=== PATIENT | male | born 1965 | race Caucasian/White ===

== ENCOUNTER 2024-07-05 07:47 | Outpatient (RCR) | payer BC, SELFPAY ==
--- NOTE | 2024-07-05 08:49 | HP.PTEVAL_ITS ---
Patient's Visit Information Visit Information Visit Information: HILARIA BECERRA is a 59 year old M referred to Physical Therapy by Dr. Chris Angulo MD with a diagnosis of Lumbar stenosis and scoliosis. Date of Evaluation: 07/05/24 Physical Therapist: Fletcher Carbajal, DPT, OCS, CSCS Visit Plan Frequency: 1-2x /Week Duration: 4-6 Weeks Plan: 1-2x/week as needed for 4 weeks to instruct and progress exercises to increase flex in HS/quads, move lumbar spine for nourishment, strengthen core for stabilization and general ex as tolerated. Pt is frustrated with pain and does nto indicate seeing the benefit of therapy but willing to commit at least until get approval for surgery. IE HEP Pelvic tilt alot thorugh day to keep spine moving. educated on benefits of wh walker to help get around. next session, HS and quad stretches, mat based back rom and core strength to HEP, pt wants once per week and will do at h ome TENS as needed. Subjective Subjective: LBP for a year or more. Had steroid injections and no help. pain is in back and down R leg. Walking is worse and needs to use a cane, has walker at home. Keeps him up at night. 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 Pain the whole next day when he is too active. No numbness or tingling in legs. This may have started with mowing a couple hours. Will have lumbar fusion after cleared by heart doctor. Pain LBP. R leg': Pain Intensity (Out of 10): 5 Pain Intensity Range: 3 and 10 Comment: lying down is best on right side. walking is worst Objective Objective: Walks with cane in R UE mod I, hunched oveer, slow and small steps. Posture in sitting is leaning L constantly and hunched FW. Is able to stand up tall when cued but gives larger pressure feeling in R LB that is uncomfortable. Lumbar AROM ext max limited to just about neutral and painful, flexion is min limited in lumbar and leans L. SB R is callenging and L is min deficits. Pt affect is frustrated and painful and many sighs throughout session, obviously wanting a surgical end to this problem understandably. HS and quad are max tight at - 35 90/90 and + SLR adn slump on R. reflexes 2/3 patella adn achilles B. sensation B LE to gross light touch is WNL and without deficit. LE strength shows no myotomal problems but apparently weak in hip stabs B with hip flexion testing and core necessitating arm on table fro stability. hip abd and ext 3+, flexion 3+, knee flexion and ext 4-, ankles 4/5. Walks slightly faster and up talleer with wh walker and eeducated him on the ginna efits of this today. Pelvic mobility is actually decent and without complaint today in supinee and min deficits in sitting. Balance/Special Test Scores Oswestry Low Back Score: 25 Goals Goal 1:: Patient I in appropriate HEP to minimize symptoms and maximize function in prep for possible surgery Goal Time Frame: 4-6 Weeks Goal 2:: Patient able to walk into PT without increasing pain in LB Goal Time Frame: 4-6 Weeks Goal 3:: Oswestry back 12 or better Goal Time Frame: 4-6 Weeks Rehabilitation Potential Physical Therapy Diagnosis: limited strength and ROM in core and pain limiting function and ability to walk. Rehabilitation Potential: Questionable Anticipated Interventions Patient/Client Instruction: Educate patient on: Condition For the Purpose of:: To decrease pain, To increase ROM, To improve muscle performance and motor function, To increase tolerance to activity/condition/position, To improve ability of physical actions for home/community/work/leisure and To improve gait and locomotor functions Therapeutic Exercise to Include: Strength training, Postural training, Flexibilty training, Gait and locomotor training, Passive ROM and Active ROM For the Purpose of:: To decrease pain, To increase ROM, To improve nutrient delivery to tissue, To improve muscle performance and motor function and To increase tolerance to activity/condition/position Manual Therapy Techniques to Include: Mobilization and Passive ROM For the Purpose of:: To increase ROM and To improve nutrient delivery to tissue TENS: Yes Thermo therapy (hot pack): Yes For the Purpose of:: To decrease pain Text: Thank you for the opportunity to evaluate your patient. For Medicare and Medicare HMO plans, please review the plan of care and approve it. It will need to be FAXED BACK to us at [phone] for Medicare purposes. For Medicare only, by signing this I certify the plan of care. Please let me know if there are questions or concerns regarding this plan of care. Physician Signature: Date:
--- NOTE | 2024-07-26 14:12 | HP.PT.NRP ---
Patient Information Patient Information: HILARIA BECERRA was seen in my office for initial evaluation on 07/05/24. The following Plan of Care was established for this patient: POC Established Initial Frequency: 1-2x /Week Initial Duration: 4-6 Weeks Anticipated Interventions Patient/Client Instruction: Educate patient on: Condition For the Purpose of:: To decrease pain, To increase ROM, To improve muscle performance and motor function, To increase tolerance to activity/condition/position, To improve ability of physical actions for home/community/work/leisure and To improve gait and locomotor functions Therapeutic Exercise to Include: Strength training, Postural training, Flexibilty training, Gait and locomotor training, Passive ROM and Active ROM For the Purpose of:: To decrease pain, To increase ROM, To improve nutrient delivery to tissue, To improve muscle performance and motor function and To increase tolerance to activity/condition/position Manual Therapy Techniques to Include: Mobilization and Passive ROM For the Purpose of:: To increase ROM and To improve nutrient delivery to tissue TENS: Yes Thermo therapy (hot pack): Yes For the Purpose of:: To decrease pain Last Seen Last Seen: This patient was last seen in our office 07/05/24. Pertinent comments regarding their Physical therapy will appear below: Pt seen for IE and POC established. Pt has called to cancel appointments stating he was cleared for surgery and will save PT for later as needed. At this point I will be discontinuing this patient from physical therapy. I would be happy to see this patient again in the future if found appropriate by the physician. Thank you! Fletcher Carbajal, DPT, OCS, CSCS Balance/Gait/Functional tests Balance/Special Test Scores Oswestry Low Back Score: 25
== END 2024-07-05 19:00 | disposition home or self-care (01) ==
LOC: PT 07:47
PROVIDERS: PCP Preventive Medicine Occupational Medicine; Referring Provider Orthopaedic Surgery Orthopaedic Surgery of the Spine; Visit Provider Orthopaedic Surgery Orthopaedic Surgery of the Spine
DX: M41.9 Scoliosis, unspecified (principal); M48.061 Spinal stenosis, lumbar region without neurogenic claudication
CPT/HCPCS: 97161

== ENCOUNTER 2024-08-25 16:48 | Inpatient (IN) | payer BC, SELFPAY ==
[2024-08-12 09:38] LABS: Absolute Lymphocyte Count 1.76 X10^3/uL (0.83-4.51); Absolute Neutrophil Count 4.8 X10^3/uL (2.0-7.7); Basophil# 0.09 X10^3/uL; Basophil% 1.2 % (0-1); Eosinophil# 0.18 X10^3/uL; Eosinophils% 2.4 % (0-5); Hemoglobin 14.1 g/dL (13.0-16.5); Lymphocyte # 1.76 X10^3/ul (0.83-4.51); Lymphocyte % 23.4 % (19-41); Mean Corp Hgb Conc 34.4 g/dL (32-36); Mean Corpuscular Hgb 32.4 pg (27.0-32.0); Mean Corpuscular Volume 94.3 fL (80-94); Mean Platelet Vol. 11.7 fl (6.2-12.0); Monocyte# 0.71 X10^3/uL; Monocyte% 9.4 % (0-10); NRBC Flagged by Analyzer 0 % (0-5); Neutrophil # 4.76 X10^3/uL (2.7-7.7); Neutrophil % 63.2 % (47-70); Platelet Count 172 K/mm3 (150-450); RBC Distribution Width CV 12.2 % (11.6-14.6); Red Blood Count 4.35 M/mm3 (4.6-6.2); White Blood Count 7.5 K/mm3 (4.4-11.0)
[2024-08-12 10:47] LABS: Anion Gap 17 (5-15); BUN 19 mg/dL (4-19); BUN/Creat Ratio 17.5 RATIO (10-20); Calcium,Total 9.7 mg/dL (7.6-11.0); Carbon Dioxide 21.1 mmol/L (21.0-32.0); Chloride 102 mmol/L (98-108); EST Glomerular Filtration Rate 76 (>60); Glucose 141 mg/dL (70-99); HIV Nonreactive (Nonreactive); Magnesium 2.4 mg/dL (1.5-2.2); Potassium 3.8 mmol/L (3.3-5.1); Sodium Level 140 mmol/L (133-145)
[2024-08-12 11:02] LABS: Hepatitis B Surface Antibody Nonreactive; Hepatitis C Antibody Nonreactive (Nonreactive)
--- NOTE | 2024-08-12 19:54 | PAT.ANESEVAL ---
Pre-Assessment Diagnosis/Proposed Procedure Planned Operative Procedure(s): (N/A) Anterior lumbar interbody fusion L5-S1, oblique lateral interbody fusion L1-2 and L2-3 and posterior fusion L5-S1, L1-2 and L2-3 Anesthesia History Anesthesia History - guidance director: Anesthesia History - guidance director Hx Hospitalization No 08/11/24 09:24 Any Problems With Anesthesia No 08/11/24 09:24 Cholinesterase deficiency No 08/11/24 09:24 You/Your Family Experience No 08/11/24 09:24 fever (hyperthermia) with Relationship Recent Exposure to Contagious Disease Does patient have nerve No 08/11/24 09:24 stimulator Patient instructed to have device shut off --Does patient have Pacemaker or ICD? When Was Last Pacemaker Check QUESTION #4 FULL TEXT: You/Your Family Experience fever (hyperthermia) with Anesthesia Last Oral Intake Last Oral intake: Last Oral Intake NPO since Meds taken in AM with sips of water? Meds patient instructed to take am of surgery PONV PONV - guidance director: PONV - guidance director Female No 08/11/24 09:24 HX of Motion Sickness No 08/11/24 09:24 HX of N/V After Surgery No 08/11/24 09:24 Non-Smoker No 08/11/24 09:24 Duration of Surgery greater Yes 08/11/24 09:24 than 60 minutes Number of Risk Factors 1 08/11/24 09:24 PONV Score Low Risk 08/11/24 09:24 Height & Weight Height & Weight: Anesthesia: Height & Weight Height 5 ft 9 in 06/25/24 08:41 Respiratory Assessment Respiratory Assessment - guidance director: Respiratory Tract Infection Hx - guidance director Hx Respiratory Tract Infection No 08/11/24 09:24 STOP Sleep Apnea STOP Sleep Apnea - guidance director: STOP Sleep Apnea - guidance director Hx Hypertension Yes: CONTROLLED WITH MED 08/11/24 09:24 Hx Sleep Apnea No 08/11/24 09:24 CPAP BIPAP Do you snore loudly (louder No 08/11/24 09:24 than talking or can be heard Do you often feel tired/ No 08/11/24 09:24 fatigued/ sleepy during daytime? Has anyone observed you stop No 08/11/24 09:24 breathing during sleep? STOP Results Negative 08/11/24 09:24 QUESTION #5 FULL TEXT : Do you snore loudly (louder than talking or can be heard through closed doors)? 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 Specify any problems Hx of Preganancy in last 3 N/A 08/11/24 09:24 Months Nurse Filling Out Transfusion NBUCHER 08/11/24 09:24 & Questions: Date: 08/11/24 08/11/24 09:24 Time: 09:08/11/24 09:24 Patient unable to answer at this time (ie. confused, unrespo /Reproduction History /Reproductive History - guidance director: /Reproductive Hx- guidance director Hx Now No 08/11/24 09:24 Gestational Age (in weeks): EDC: Hx Hx Para Hx Section SAB No 08/11/24 09:24 [facility] Medical History (Updated 08/11/24 @ 09:32 by Cely Cooper) Loss of hearing Ambulates with cane High cholesterol Heartburn Gastric reflux Smoker History of edema History of stress test History of echocardiogram Cardiology follow-up encounter Chest pain Cervical vertebral fusion (~2019) Heart attack Hypertension Hyperlipemia Home Medications ?Medication ?Instructions ?Recorded ?Last Taken ?Type aspirin 81 mg tablet,delayed 81 mg PO QDAY HEART HEALTH 06/25/24 Unknown History release atorvastatin 40 mg tablet 40 mg PO QDAY HLD 06/25/24 Unknown History carvedilol 6.25 mg tablet 6.25 mg PO BID HTN 06/25/24 Unknown History clopidogrel 75 mg tablet 75 mg PO DAILY BLOOD THINNER 06/25/24 Unknown History furosemide 20 mg tablet 20 mg PO DAILY EDEMA 06/25/24 Unknown History losartan 100 mg tablet 100 mg PO DAILY HTN 06/25/24 Unknown History potassium chloride 10 mEq 10 meq PO BID HYPOKALEMIA 06/25/24 Unknown History tablet,extended release ergocalciferol (vitamin D2) 1,250 1,250 mcg PO QWEEK SUPPLEMENT 08/11/24 Unknown History mcg (50,000 unit) capsule Allergy/AdvReac Type Severity Reaction Status Date / Time No Known Allergies Allergy Verified 08/11/24 09:19 Surgical History (Updated 08/11/24 @ 09:32 by Cely Cooper) S/P CABG x 4 History of cardiac catheterization History of heart surgery History of wisdom tooth extraction History of open heart surgery (~2014) Social History Smoking Status: Current every day smoker tobacco type: cigarettes Audit: Pertinent Findings Pertinent Findings EKG Perinent findings: August 12, 2024. Normal sinus rhythm. T wave abnormality consider inferior ischemia. T wave abnormality consider anterior lateral ischemia. Compared to EKG of June 30, 2024 the inverted T waves in V4-6 has now extended into V2 and V3. T wave abnormality in the inferior leads is unchanged. Stress test pertinent findings: July 16, 2024. No ischemia. Echo (EF%) pertinent findings: July 16, 2024. Ejection fraction is 25 to 30%. There is dyskinesia of several areas. No aortic stenosis is noted. Mitral valve angioplasty ring is present and has a mild 1+ regurgitation. Right ventricular systolic pressure is 19 mmHg. Consult pertinent findings: July 20, 2024. [employer]. 1. Coronary artery disease?stable-no ischemia on stress test. Tolerating medication we will continue. 2. Cardiomyopathy?ejection fraction of 25% in 2018. Patient declined an AICD at that time. Repeat echo still shows EF of 25%. Change losartan to Entresto. 3. Status post mitral valve repair. 1+ MR on echo. 4. Hypertension-controlled. Continue carvedilol and losartan. 5. Preop cardiovascular exam. Patient will be undergoing a lumbar surgery. No ischemia seen on stress test. He is at least moderate risk due to his low ejection fraction. Continue beta-nasra morning of surgery. May hold Plavix for 5 days. Recommendation Anesthesia Recommendation Anesthesia recommendation: OPTIMIZED for anesthesia
[2024-08-13 05:07] LABS: Hepatitis A AB, Total Negative (Negative)
[2024-08-25] VITALS (15 sets, daily range): BP systolic 96–151; BP diastolic 68–104; PULSE 69–107; RESP 14–20; TEMP 36.2–37.3; O2SAT 92–98; BMI 30.8
[2024-08-25] MEDS: Lactated Ringers 1,000 ML 15 ML IV (06:06)
[2024-08-25] MEDS: Magnesium 1 GM over 15 mins IV (06:07)
[2024-08-25] MEDS: Insulin Lispro 100 UNIT/ML INSULN.PEN SC ×3 (06:21→22:55)
[2024-08-25] MEDS: Acetaminophen 500 MG Tablet 1000 MG PO ×2 (06:26→20:35)
--- NOTE | 2024-08-25 06:32 | PRE.ANES_ITS ---
ASA Classification* ASA Classification ASA Classification: 4 (LOW EF of 25-30%. We will place an arterial line in pre- op, or pre-induction. Induction with etomidate instead of propofol, and slow induction please given the low EF. ) Assessment & Plan Anesthesia* Anesthesia Assessment Anesthesia Assessment: Discussed sedation and/or anesthesia options, risks, benefits, and alternatives with patient/parents/legal guardian/POA. Questions invited. The patient/parents/legal guardian/POA seems to understand and agrees to proceed with anesthesia plan. Reviewed the physical assessment, medical history, allergy history and patient home medications list prior to surgery/procedure/anesthetic and documented any changes. Performed airway and anesthesia risk assessments. Given the low EF and the length of the procedure, I had a very detailed and thorough conversation with the patient today regrading the risk of today's procedure. I explained to him that due to his low EF, there is an increased chance of periprocedural cardiac complications which could result in lethal arrhythmias, worsening heart failure, stroke, myocardial infarction, or . As he will experience bleeding during the procedure, this can worsen the oxygen demand on his heart. I explained to him that if there were to be an emergency, our potential interventions include CPR, delivering electric shocks to his heart, and having to remain on a ventilator. He acknowledges this and I answered all of his questions. He would like to proceed with the procedure. He is okay to receive blood products if neeed. Anesthesia Type Anesthesia Type: General History Source History Obtained from:: Patient and Chart Anesthesia Focused Assessment* Temperature: 98.2 F Pulse Rate: 69 Blood Pressure: 129/91 Respiratory Rate: 18 Pulse Ox: 98 Oxygen Delivery Method: Room Air Airway Assessment Mouth opens: >3 cm Mallampati Score: II Teeth Condition: Intact and Missing (1 back) Neck Range of motion (ROM): Full ROM Focused Labs Anesthesia Preop lab: CBC WBC 7.5 K/mm3 (4.4-11.0) 08/12/24 08:42 08/12/24 RBC 4.35 M/mm3 (4.6-6.2) L 08/12/24 08:42 08/12/24 Hgb 14.1 g/dL (13.0-16.5) 08/12/24 08:42 08/12/24 Hct 41.0 % (40-54) 08/12/24 08:42 08/12/24 Plt Count 172 K/mm3 (150-450) 08/12/24 08:42 08/12/24 CHEMISTRY Potassium 3.8 mmol/L (3.3-5.1) 08/12/24 08:42 08/12/24 Sodium 140 mmol/L (133-145) 08/12/24 08:42 08/12/24 Magnesium 2.4 mg/dL (1.5-2.2) H 08/12/24 08:42 08/12/24 BUN 19 mg/dL (4-19) 08/12/24 08:42 08/12/24 Creatinine 1.10 mg/dL (0.70-1.20) 08/12/24 08:42 08/12/24 Glucose 141 mg/dL (70-99) H 08/12/24 08:42 08/12/24 COAG Pre-Assessment Diagnosis/Proposed Procedure Planned Operative Procedure(s): (N/A) Anterior lumbar interbody fusion L5-S1, oblique lateral interbody fusion L1-2 and L2-3 and posterior fusion L5-S1, L1-2 and L2-3 Anesthesia History Anesthesia History - staff technologist: Anesthesia History - staff technologist Hx Hospitalization No 08/11/24 09:24 Any Problems With Anesthesia No 08/11/24 09:24 Cholinesterase deficiency No 08/11/24 09:24 You/Your Family Experience No 08/11/24 09:24 fever (hyperthermia) with Relationship Recent Exposure to Contagious No 08/25/24 06:16 Disease Does patient have nerve No 08/11/24 09:24 stimulator Patient instructed to have device shut off --Does patient have Pacemaker No 08/25/24 06:16 or ICD? When Was Last Pacemaker Check QUESTION #4 FULL TEXT: You/Your Family Experience fever (hyperthermia) with Anesthesia Last Oral Intake Last Oral intake: Last Oral Intake NPO since 04:30 08/25/24 06:16 Meds taken in AM with sips of Yes 08/25/24 06:16 water? Meds patient instructed to take am of surgery PONV PONV - staff technologist: PONV - staff technologist Female No 08/11/24 09:24 HX of Motion Sickness No 08/11/24 09:24 HX of N/V After Surgery No 08/11/24 09:24 Non-Smoker No 08/11/24 09:24 Duration of Surgery greater Yes 08/11/24 09:24 than 60 minutes Number of Risk Factors 1 08/11/24 09:24 PONV Score Low Risk 08/11/24 09:24 Height & Weight Height & Weight: Anesthesia: Height & Weight Height 5 ft 9 in 08/25/24 06:16 Weight: 94.8 kg 08/25/24 06:16 Body Mass Index (BMI) 30.8 08/25/24 06:16 Respiratory Assessment Respiratory Assessment - staff technologist: Respiratory Tract Infection Hx - staff technologist Hx Respiratory Tract Infection No 08/11/24 09:24 STOP Sleep Apnea STOP Sleep Apnea - staff technologist: STOP Sleep Apnea - staff technologist Hx Hypertension Yes: CONTROLLED WITH MED 08/11/24 09:24 Hx Sleep Apnea No 08/11/24 09:24 CPAP BIPAP Do you snore loudly (louder No 08/11/24 09:24 than talking or can be heard Do you often feel tired/ No 08/11/24 09:24 fatigued/ sleepy during daytime? Has anyone observed you stop No 08/11/24 09:24 breathing during sleep? STOP Results Negative 08/11/24 09:24 QUESTION #5 FULL TEXT : Do you snore loudly (louder than talking or can be heard through closed doors)? 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 Specify any problems Hx of Preganancy in last 3 N/A 08/11/24 09:24 Months Nurse Filling Out Transfusion NBUCHER 08/11/24 09:24 & Questions: Date: 08/11/24 08/11/24 09:24 Time: 09:08/11/24 09:24 Patient unable to answer at this time (ie. confused, unrespo /Reproduction History /Reproductive History - staff technologist: /Reproductive Hx- staff technologist Hx Now No 08/11/24 09:24 Gestational Age (in weeks): EDC: Hx Hx Para Hx Section SAB No 08/11/24 09:24 Active Medications Active Medications: Current Medications Generic Name Dose Route Start Last Admin Trade Name Freq PRN Reason Stop Dose Admin Acetaminophen 1,000 mg 08/25/24 07:30 08/25/24 06:26 Acetaminophen 500 Mg Tablet PO 08/25/24 07:31 1,000 mg PREOP ONE Administration Cefazolin Sodium 2 gm/ Sodium 110 mls @ 150 mls/hr 08/25/24 07:30 Chloride IV 08/25/24 08:13 INTRAOP ONE Tranexamic Acid 1,000 mg/ 110 mls @ 440 mls/hr 08/25/24 07:30 Sodium Chloride IV 08/25/24 07:44 X1 ONE Tranexamic Acid 1,000 mg/ 110 mls @ 440 mls/hr 08/25/24 07:30 Sodium Chloride IV 08/25/24 07:44 X1 ONE Magnesium Sulfate 1 gm/ 102 mls @ 408 mls/hr 08/25/24 07:30 08/25/24 06:07 Dextrose IV 08/25/24 07:44 408 mls/hr INTRAOP ONE Administration Lactated Ringer's 1,000 mls @ 15 mls/hr 08/25/24 05:45 08/25/24 06:06 IV 15 mls/hr .Q48H MONIQUE Administration Insulin Human Lispro 1 - 6 unit 08/25/24 07:30 08/25/24 06:21 Insulin Lispro 100 Unit/Ml Insuln.Pen SC 08/25/24 18:00 2 u Q4H PRN PRN Administration BG>/= 180, SEE PROTOCOL Protocol PFSH Medical History Loss of hearing Ambulates with cane High cholesterol Heartburn Gastric reflux Smoker History of edema History of stress test History of echocardiogram Cardiology follow-up encounter Chest pain Cervical vertebral fusion (~2019) Heart attack Hypertension Hyperlipemia Home Medications ?Medication ?Instructions ?Recorded ?Last Taken ?Type aspirin 81 mg tablet,delayed 81 mg PO QDAY HEART HEALT H 06/25/24 08/19/24 History release atorvastatin 40 mg tablet 40 mg PO QDAY HLD 06/25/24 0 08/24/24 History carvedilol 6.25 mg tablet 6.25 mg PO BID HTN 06/25/24 08/25/24 History clopidogrel 75 mg tablet 75 mg PO DAILY BLOOD THINNER 06/25/24 08/19/24 History furosemide 20 mg tablet 20 mg PO DAILY EDEMA 5 08/24/24 History losartan 100 mg tablet 100 mg PO DAILY HTN 06/25/24 Unknown History potassium chloride 10 mEq 10 meq PO BID HYPOKALEMIA 08/24/24 History tablet,extended release ergocalciferol (vitamin D2) 1,250 1,250 mcg PO QWEEK S UPPLEMENT 08/11/24 08/18/24 History mcg (50,000 unit) capsule Allergy/AdvReac Type Severity Reaction Status Date / Time No Known Allergies Allergy Verified 08/25/24 06:04 Surgical History S/P CABG x 4 History of cardiac catheterization History of heart surgery History of wisdom tooth extraction History of open heart surgery (~2014) Social History Smoking Status: Current every day smoker tobacco type: cigarettes Review of Systems (Anesthesia) ROS Narrative System reviewed and no additional complaints, except as documented. Physical Exam Const alert, oriented x3 and average body habitus Resp normal respiratory effort, normal air movement and clear to auscultation bilaterally Cardio regular rate, regular rhythm, no murmurs and diaphoretic
--- NOTE | 2024-08-25 07:12 | PCM.HP.BLA ---
History and Physical Date of Admission: 08/25/24 MR#: [id number] Acct: [id number] Name: HILARIA BECERRA Rep #: [id number] : 1965 Provider: Dr. Chris Angulo MD Age/Sex: 59/M Location[place] [facility] [email or web address] Status: Signed Intake Vital Signs 06/26/2507:41 Height 5 ft 9 in Intake Visit Reasons: lumbar spine Chief Complaint: Lumbar spine Allergies No Known Allergies Allergy (Verified 08/19/24 09:56) Medications ?Medication ?Instructions ?Recorded ?Confirmed ?Type aspirin 81 mg tablet,delayed 81 mg PO QDAY HEART HEALTH 06/25/24 08/19/24 History release atorvastatin 40 mg tablet 40 mg PO QDAY HLD 06/25/24 08/19/24 History carvedilol 6.25 mg tablet 6.25 mg PO BID HTN 06/25/24 08/19/24 History clopidogrel 75 mg tablet 75 mg PO DAILY BLOOD THINNER 06/25/24 08/19/24 History furosemide 20 mg tablet 20 mg PO DAILY EDEMA 06/25/24 08/19/24 History losartan 100 mg tablet 100 mg PO DAILY HTN 06/25/24 08/19/24 History potassium chloride 10 mEq 10 meq PO BID HYPOKALEMIA 06/25/24 08/19/24 History tablet,extended release ergocalciferol (vitamin D2) 1,250 1,250 mcg PO QWEEK SUPPLEMENT 08/11/24 08/19/24 History mcg (50,000 unit) capsule PFSH Medical History Loss of hearing Ambulates with cane High cholesterol Heartburn Gastric reflux Smoker History of edema History of stress test History of echocardiogram Cardiology follow-up encounter Chest pain Cervical vertebral fusion (~2019) Heart attack Hypertension Hyperlipemia Surgical History S/P CABG x 4 History of cardiac catheterization History of heart surgery History of wisdom tooth extraction History of open heart surgery (~2014) Social History Smoking Status: Current every day smoker tobacco type: cigarettes HPI lumbar spine Details: This documentation accurately reflects the service provided and the decisions made by me, Dr. Chris Angulo MD 08/19/24 0949. Part of today?s visit was documented by Bobbi DUARTE, acting as scribe. HILARIA BECERRA is a 59 year old M here today for preop, lumbar spine, dos 08/25/24. He continues to have significant low back pain, forward stooping posture, difficulty walking distances and walks with a cane. 06/25/24: HILARIA BECERRA is a 59 year old M here today for initial evaluation of lumbar spine pain. He presents ambulating with a cane. He reports a one year history of lumbar spine pain, insidious onset. He states the low back pain is worse on the right side. He states walking is difficult due to the pain and has been using a cane for the last three months due to this, The pain does make it difficulty for him to do his daily activities, lift and bend. He states laying down in the only thing that gives him relief. The pain does radiate down into his right anterior thigh. He denies previous surgery or injury to his low back. He denies numbness and tingling. He has not seen pain management. He has not done PT. He does have a previous history of a cervical fusion. He does have a history of heart attack with coronary bypass surgery for which he takes Plavix for. He denies diabetes. He denies strokes. He states he is only able to walk short distances and has to stop frequently and take breaks. He is not able to stand for long periods of time. He has to lean on a cart when shopping to get around a store. He does not feel weakness in his legs with walking. He has taken oral steroids several times over the last year which was minimally helpful. His knees do not give out or buckle when he walks. He denies numbness in his hands. He currently does not take anything for pain relief. 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 Ortho Exam General General: Yes no acute distress Neurologic: Yes alert and Yes oriented x3 Spine SPINE TESTING CERVICAL THORACIC LUMBAR Musculoskeletal Strength 0=absent - 5=normal Details: Exam of the back shows midline paraspinal tenderness in the mid lumbar region. Neurologic valuation of lower extremity shows 5 x 5 power in all muscles normal sensations in all dermatomes. Patient stands with a forward stooping posture. There is no hyperreflexia lower extremities. Coding Level of Care Code Off vis,est,level 4 Diagnoses Spondylolisthesis, lumbar region M43.16 Other secondary scoliosis, lumbar region M41.56 Scoliosis type: other secondary scoliosis Spinal stenosis of lumbar region with neurogenic claudication M48.062 Other intervertebral disc degeneration, lumbar region with discogenic back pain and lower extremity pain M51.362 Time Spent (min) 35 Assessment and Plan Assessment and Plan (1) Spondylolisthesis, lumbar region: Status: Acute (2) Lumbar scoliosis: Status: Acute Qualifiers: Scoliosis type: other secondary scoliosis Qualified Code(s): M41.56 - Other secondary scoliosis, lumbar region (3) Spinal stenosis of lumbar region with neurogenic claudication: Status: Acute (4) Other intervertebral disc degeneration, lumbar region with discogenic back pain and lower extremity pain: Status: Acute Plan Obtained Xrays and MRI of patient's lumbar spine. X-rays show L1-3 severe disc degeneration with disc height loss with degenerative scoliosis and severe central and foraminal stenosis. L5-S1 shows grade 1 spondylolisthesis with mild dynamic instability. Significant foraminal stenosis noticed at L5-S1. Patient has skip levels where L5 and S1 has pathology followed by L1-3. Explained x-ray results in detail with patient. Reviewed outside MRI with patient in detail. Pt does have a posture where he leans forward. He has developed neurogenic claudication and cannot walk distances anymore. He has severe limitation of activities of daily living because of this. He is unable to stand for long period of time as well. Discussed surgical and non surgical options with patient. Discussed risks, alternative and benefits to each. Pt has not tried PT or pain management. Recommend pt try the non surgical options before considering surgery starting with PT. Pt would like to proceed with surgery and will do physical therapy as prerehabilitation prior to surgery. Pt would require surgery on two portions of the spine. Discussed that this would be a long surgery for the patient. Pt will require clearance from cardiology and primary care before surgery. 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 Advised pt he will spend 1-2 nights in the hospital and will require a walker after the surgery. He does not wish to pursue a pain management referral. All questions answered. Patient in agreement of plan. Recommend patient follow up 1 week before surgery or as needed. Surgery will be L5-S1 and L1-L3 anterior posterior fusion with indirect decompression. All risk benefits and alternatives were discussed in detail. Risks include but are not limited to infection, bleeding, need for blood transfusion, injury to nerves and vessels, visceral injury, ileus, vascular injury, DVT, pulm embolism, pneumonia, atelectasis, cardiopulmonary event, pseudoarthrosis, hardware failure, adjacent segment degeneration, need for further surgery, persistent pain, nerve root injury, foot drop, persistent numbness and weakness, difficulty to walk. Patient understands and agrees to proceed with surgery. Consent was signed.
[2024-08-25 07:40] LABS: Bedside Glucose 247 mg/dL (74-106)
[2024-08-25] MEDS: Cefazolin 2 GM in 0.9% Normal Saline (100mL Bag) 100 ML IV ×2 (07:46→22:55)
--- NOTE | 2024-08-25 07:46 | RAD_ITS ---
PROCEDURE: L/S SPINE MIN 4 VIEWS 08/25/2024 REASON FOR EXAM: ANTERIOR LUMBAR FUSION L5-S1, OBLIQUE FUSION L1-2 AND L2-3 TECHNIQUE: Fluoroscopy with 27 spot images FINDINGS: Fluoroscopy time 250.2 seconds Cumulative dose 142.05 mGy Placement of anterior intervertebral cage and anterior fusion L5-S1. L1-2 and L2-3 intervertebral disc spacers with posterior fusion and lateral screws. Posterior fusion L5-S1. Please see operative report for further detail. RAD/L/S Spine Min 4 Views IMPRESSION: Fluoroscopy as detailed above Reading Location: [id number]
[2024-08-25] MEDS: TRANEXAMIC ACID 1,000 MG in 0.9% Normal Saline (100mL Bag) 100 ML 440 MG IV ×2 (07:51→15:50)
[2024-08-25 09:20] LABS: Base Excess 0 mmol/L (-2 to +2); Bicarbonate 25.7 mmol/L (22-26); Blood Gas Specimen Type ART; Mode SIMV; O2 Delivery Device Adult Vent; PEEP 5; PO2 185 mmHG (75-100); RR 10; SITE Art Line; SO2 100 % (95-99); Total Carbon Dioxide 27 mmol/L; pCO2 44.5 mmHg (35-45); pH 7.37 (7.35-7.45)
[2024-08-25 09:22] LABS: Absolute Lymphocyte Count 1.56 X10^3/uL (0.83-4.51); Absolute Neutrophil Count 4.9 X10^3/uL (2.0-7.7); Basophil# 0.09 X10^3/uL; Basophil% 1.2 % (0-1); Eosinophil# 0.24 X10^3/uL; Eosinophils% 3.1 % (0-5); Hematocrit 37.9 % (40-54); Hemoglobin 13.3 g/dL (13.0-16.5); Lymphocyte # 1.56 X10^3/ul (0.83-4.51); Mean Corp Hgb Conc 35.1 g/dL (32-36); Mean Corpuscular Hgb 32.8 pg (27.0-32.0); Mean Corpuscular Volume 93.3 fL (80-94); Mean Platelet Vol. 10.7 fl (6.2-12.0); Monocyte% 12.8 % (0-10); NRBC Flagged by Analyzer 0 % (0-5); Neutrophil # 4.88 X10^3/uL (2.7-7.7); Neutrophil % 62.4 % (47-70); Platelet Count 146 K/mm3 (150-450); RBC Distribution Width CV 12.1 % (11.6-14.6); RBC Distribution Width SD 41.7 fl (35.1-43.9); Red Blood Count 4.06 M/mm3 (4.6-6.2); White Blood Count 7.8 K/mm3 (4.4-11.0)
[2024-08-25 09:58] LABS: Anion Gap 11 (5-15); BUN 18 mg/dL (4-19); BUN/Creat Ratio 15.7 RATIO (10-20); Calcium,Total 9.2 mg/dL (7.6-11.0); Carbon Dioxide 22.9 mmol/L (21.0-32.0); Chloride 105 mmol/L (98-108); Creatinine, Serum 1.16 mg/dL (0.70-1.20); EST Glomerular Filtration Rate 72 (>60); Estimated Creatinine Clearance 75.99 ml/min (50-250); Glucose 130 mg/dL (70-99); Potassium 4.1 mmol/L (3.3-5.1); Sodium Level 139 mmol/L (133-145)
[2024-08-25 14:34] LABS: Base Excess -1 mmol/L (-2 to +2); Bicarbonate 23.6 mmol/L (22-26); Blood Gas Specimen Type ART; Mode SIMV; O2 Delivery Device Adult Vent; PEEP 5; PO2 229 mmHG (75-100); RR 12; SITE Art Line; SO2 100 % (95-99); Total Carbon Dioxide 25 mmol/L; pCO2 38.4 mmHg (35-45)
[2024-08-25 14:54] LABS: Hematocrit 36.1 % (40-54); Hemoglobin 12.6 g/dL (13.0-16.5); Mean Corp Hgb Conc 34.9 g/dL (32-36); Mean Corpuscular Hgb 32.6 pg (27.0-32.0); Mean Corpuscular Volume 93.5 fL (80-94); Mean Platelet Vol. 11.5 fl (6.2-12.0); Platelet Count 145 K/mm3 (150-450); RBC Distribution Width SD 41.3 fl (35.1-43.9); Red Blood Count 3.86 M/mm3 (4.6-6.2)
[2024-08-25 15:10] LABS: Anion Gap 12 (5-15); BUN 16 mg/dL (4-19); BUN/Creat Ratio 14.5 RATIO (10-20); Carbon Dioxide 21.8 mmol/L (21.0-32.0); Chloride 105 mmol/L (98-108); Creatinine, Serum 1.08 mg/dL (0.70-1.20); EST Glomerular Filtration Rate 78 (>60); Estimated Creatinine Clearance 81.62 ml/min (50-250); Glucose 162 mg/dL (70-99); Potassium 4.1 mmol/L (3.3-5.1); Sodium Level 139 mmol/L (133-145)
[2024-08-25 15:33] LABS: Lactic Acid 2.7 mmol/L (0.0-2.0)
[2024-08-25] MEDS: Ropivacaine 0.5% 30 ML Vial (16:04)
--- NOTE | 2024-08-25 16:50 | PCM.POST.ANE ---
Anesthesia: Postop Eval I Current Vital Signs Temperature: 99.2 F Pulse Rate: 107 Blood Pressure: 131/87 Respiratory Rate: 18 Pulse Ox: 96 Assessment Airway patent: Yes Spontaneous unlabored respirations: Yes nausea: No Vomiting: No Anesthesia Complication: No Fluid Hydration Crystalloid volume administer (ml): 3,500 Total IV fluid infused: 3,500 Progress Note Anesthesia document: Postop Eval 1 completed: Yes
--- NOTE | 2024-08-25 16:55 | OP.PCM_ITS ---
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 Academic Advisor: Fletcher Brooke Tasks completed by pastrycook's assistant: Opening, Closing, Dissecting tissue, Removing tissue, Hemostasis: Electrocautery, Retracting and Other ([id number] surgery-access) Additional video library assistant?: Yes Additional Planishing Hammer Operator #2: Sindi Whitaker Tasks completed by video library assistant #2: Closing, Hemostasis: Electrocautery and Retracting Type of Anesthesia: General RN Documented Start/Stop Times: Operation Date: 08/25/24 07:30 Case Time Into Pre-Op 08/25/24 05:41 Anesthesia Start 08/25/24 07:46 Into Room 08/25/24 07:46 Out of Pre-Op 08/25/24 07:46 Procedure Start 08/25/24 08:19 Procedure End 08/25/24 16:42 Anesthesia End 08/25/24 16:48 Out of Room 08/25/24 16:48 Procedure Start Time: 08:19 Procedure Stop Time: 16:42 Select all DRAINS/GRAFTS/IMPLANTS that apply: Graft Graft details: Allograft cancellous bone chips, autologous bone marrow aspirate and Implanted device Implanted device details: 4WEB lumbar interbody cage anterior spine TRUSS system, Aegis plate instrumentation Estimated Blood Loss: 200 cc Specimen collected: No Description of surgery: Preoperative diagnosis: L5-S1 spondylolisthesis, disc degeneration, stenosis with neurogenic claudication Postoperative diagnosis: Same Name of procedures L5-S1 anterior lumbar interbody fusion (ALIF),Supine: ? L5-S1 anterolateral spinal fusion ? L5-S1 insertion of cage . L5-S1 anterior instrumentation ? Bone graft aspirate left iliac crest separate incision ? Allograft cancellous chips Attending Surgeon: Dr. Chris Angulo Co-surgeon: Dr. Fletcher Brooke Estimated blood loss: 200 mL Anesthesia: General Complications: None Indications: Patient is a 59-year-old pleasant gentleman who has had a long history of low back pain and right lower extremity radiation, difficulty walking distances. Xrays & MRI revealed L5-S1 spondylolisthesis, stenosis, L1-3 disc degeneration with stenosis, degenerative scoliosis. After undergoing a prolonged period of nonoperative treatment, the patient elected to undergo surgical decompression & fusion. All surgical options were discussed with the patient including anterior and posterior approaches. All risks and benefits associated with the procedure were explained to the patient. The risks include but are not limited to infection, bleeding, injury to nerves and vessels including major vessels like IVC and aorta, persistent paresthesia, persistent pain, dural tear, need for further procedures, adjacent segment degeneration, pseudoarthrosis, hardware failure, retrograde ejaculation, paralytic ileus, etc. Procedure: The patient was identified in the preoperative holding suite using Unique patient identifiers. Skin was marked, consent was reviewed, and all questions were answered. The patient was then brought back to the operative room. A surgical timeout was performed to make sure correct procedure was being done on the correct patient and all operative room staff were on the same page. General endotracheal anesthesia was then given to the patient. Enriquez catheter was inserted. The patient was then carefully positioned in supine position with pillows below the knees on a regular OR table. The surgical area was prepped and draped in usual fashion. 2 g of Ancef was injected IV as preoperative antibiotic. A final timeout was then again done just before starting the procedure. A 2.5 inch transverse Pfannenstiel incision was taken in the suprapubic area along the skin crease. Sharp dissection with Bovie was carried out up to the anterior rectus sheath. Anterior rectus sheath was incised vertically close to the midline. Left rectus muscle was retracted laterally. Preperitoneal space was explored to identify inferior epigastric vessels on the left side. Sponge sticks were utilized to move the bowel and peritoneum jpm-ar-kii-way staying within the retroperitoneal plane. [employer] retractor system was positioned and the retractor blades were applied. Left common iliac artery and vein were recognized and traced proximally up to the promontory. Left ureter and all peritoneal contents were retracted towards the right. The promontory was cleared with the help of peanut elevator. Median sacral vessels were identified and ligated and divided. The annulus of the disc was identified and a marker x-ray was performed to confirm the levels. The interval between the bifurcated vessels was developed and retractors were placed to expose the L5-S1 disc. Annulotomy was done with a long handled knife. Pituitary was used to remove disc material. Sharp Richard was used to denude the endplate cartilage. Curettes were used to prepare the endplates. Near complete discectomy was performed. Trials of serially increasing sizes were used. A Jamshidi needle was used to aspirate bone marrow from the left iliac crest through a separate incision and this aspirate was mixed with the allograft bone chips. 4WEB anterior spine Truss system interbody cage medium footplate, 16 mm height and 16 degrees lordosis was packed with cancellous allograft bone chips mixed wi th bone marrow aspirate. This was inserted into the L5-S1 level. 23 mm Aegis plate instrumentation was done with 24 mm screws locked into the plate. The cage and plate were independent of each other. AP and lateral C-arm pictures were taken to confirm good position of the cage and plate. Hemostasis was confirmed. The retractor blades were removed. Closure was done in layers with #1 Vicryl for the anterior rectus sheath. 2-0 Vicryl was used for subcutaneous tissue and 4-0 for Monocryl for the skin. Steri-Strips were applied and 4 x 4 gauze and Tegaderm were applied. Planishing Hammer Operator Sindi Whitaker PA-C. My physician video library assistant was a vital part of this case. They were important in appropriate retraction during the case, and protection of soft tissues during the procedure. Their intimate knowledge of the case and my steps aided in safe and expedient completion of the procedure as well as appropriate position of the patient during the surgery. They were also vital in assisting with closure under my direct supervision. Surgical Findings: See operative note Complications Complications: No
--- NOTE | 2024-08-25 17:00 | POSTOPAN2_ITS ---
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 MANAGER.CSIR Spontaneous unlabored Yes 08/25/24 16:50 DEPARTMENT SALES MANAGER.CSIR respirations Mental status nausea No 08/25/24 16:50 DEPARTMENT SALES MANAGER.CSIR Vomiting No 08/25/24 16:50 DEPARTMENT SALES MANAGER.CSIR Anesthesia Postop Eval I: Fluid Summary Crystalloid volume administer 3,500 08/25/24 16:50 DEPARTMENT SALES MANAGER.CSIR (ml) Colloids volume administered ( ml) Blood Product volume administered (ml) Total IV fluid infused 3,500 08/25/24 16:50 DEPARTMENT SALES MANAGER.CSIR Anesthesia Postop Eval I: Summary Notes Anesthesia Complication No 08/25/24 16:50 DEPARTMENT SALES MANAGER.CSIR Anesthesia Complication Comment: Post-operative progress note Anesthesia: Postop Eval II Evaluation Mental status: Awake Pain Level: 0 nausea: No Vomiting: No Complications Anesthesia Complication: No
--- NOTE | 2024-08-25 17:00 | PCM.POSTANE2 ---
Anesthesia Postop Eval I Sum Postop Eval Completion status Anesthesia document: Postop Eval 1 completed: Yes Anesthesia Postop Eval I Summary Anesthesia Postop Eval I Summary: Anesthesia Postop Eval I: Assessment Summary Airway patent Yes 08/25/24 16:50 SLUBBER TENDER.CSIR Spontaneous unlabored Yes 08/25/24 16:50 SLUBBER TENDER.CSIR respirations Mental status nausea No 08/25/24 16:50 SLUBBER TENDER.CSIR Vomiting No 08/25/24 16:50 SLUBBER TENDER.CSIR Anesthesia Postop Eval I: Fluid Summary Crystalloid volume administer 3,500 08/25/24 16:50 SLUBBER TENDER.CSIR (ml) Colloids volume administered ( ml) Blood Product volume administered (ml) Total IV fluid infused 3,500 08/25/24 16:50 SLUBBER TENDER.CSIR Anesthesia Postop Eval I: Summary Notes Anesthesia Complication No 08/25/24 16:50 SLUBBER TENDER.CSIR Anesthesia Complication Comment: Post-operative progress note Anesthesia: Postop Eval II Evaluation Mental status: Awake Pain Level: 0 nausea: No Vomiting: No Complications Anesthesia Complication: No
--- NOTE | 2024-08-25 17:07 | PCM.OPRPT ---
Procedures Musculoskeletal 20xxx-29xxx: Other Procedure See Report Operative Report (Standard) Operative Information Date of Procedure: 08/25/24 Pre-Operative Diagnosis: L5-S1 spondylolisthesis, L1-3 disc degeneration with stenosis, degenerative scoliosis Post-Operative Diagnosis: Same Surgery/Procedure Performed: L1-3 oblique lumbar body fusion supervisor last model department: Yes Facing End Trimmer: Fletcher Brooke Tasks completed by advertising assistant manager: Opening & closing, Dissecting tissue, Removing tissue, Hemostasis: Electrocautery, Retracting and Other ([id number] surgery-access) Additional environmental emergencies assistant?: Yes Additional Lead Installer #2: Sindi Whitaker Tasks completed by environmental emergencies assistant #2: Closing, Removing tissue, Hemostasis: Electrocautery and Retracting Type of Anesthesia: General RN Documented Start/Stop Times: Operation Date: 08/25/24 07:30 Case Time Into Pre-Op 08/25/24 05:41 Anesthesia Start 08/25/24 07:46 Into Room 08/25/24 07:46 Out of Pre-Op 08/25/24 07:46 Procedure Start 08/25/24 08:19 Procedure End 08/25/24 16:42 Anesthesia End 08/25/24 16:48 Out of Room 08/25/24 16:48 Procedure Start Time: 08:19 Procedure Stop Time: 16:42 Select all DRAINS/GRAFTS/IMPLANTS that apply: Graft Graft details: Allograft cancellous bone chips, autologous bone marrow aspirate and Implanted device Implanted device details: DePuy cougar lateral lumbar interbody cage?peek Estimated Blood Loss: 200 cc Specimen collected: No Description of surgery: Preoperative diagnosis: L1-3 disc degeneration, stenosis with neurogenic claudication, degenerative scoliosis Postoperative diagnosis: Same Name of procedures L1-3 oblique lumbar interbody fusion (OLIF), minimally invasive right sided approach, lateral decubitus: ? L1-2 anterolateral spinal fusion 64262 ? L2-3 anterolateral fusion 03881/51 ? L1-2 insertion of cage 15942 ? L2-3 insertion of cage 19153/51 ? Bone graft aspirate left iliac crest separate incision ? Allograft cancellous chips Attending Surgeon: Dr. Chris Angulo Co-surgeon: Dr. Fletcher Brooke Estimated blood loss: 200 mL Anesthesia: General Complications: None Procedure: After the initial L5-S1 ALIF procedure was complete, the patient was then carefully positioned in left lateral decubitus position with the right side up on a regular OR table. Axillary roll was placed and all bony prominences were well- padded. Hip positioners were placed in the posterior buttocks and anterior sternal area. The surgical area was prepped and draped in usual fashion. Preoperative antibiotic was injected IV as preoperative antibiotic. A final timeout was then again done just before starting the procedure. A 2 inch incision oblique was taken in the right lower quadrant of the abdomen 2 fingerbreadths away from the iliac crest and the lower ribs. Sharp dissection with Bovie was carried out up to the fascia covering the external oblique. The external oblique, internal oblique and transversus abdominis muscles were split along the muscle fibers and retroperitoneal space was entered. Sponge sticks were utilized to move the bowel and peritoneum xqz-xf-djx-way and psoas muscle was exposed staying within the retroperitoneal plane. [employer] retractor system was positioned and the retractor blade was applied onto the psoas. The interval between psoas and IVC was developed and appropriate retractors were placed. Once adequate interval was cleared, a disc space was identified and a marker x-ray was taken. This identified the L2-3 disc level. The prepsoas interval was then traced superiorly to expose the L1-2 level. Annulotomy was done with a long handled knife starting at L2-3. Pituitary was used to remove disc material. Curettes were used to prepare the endplates. Disc space spreaders were utilized to distract and increase the disc height. Near complete discectomy was performed. Trials of serially increasing sizes were used. A Jamshidi needle was used to aspirate bone marrow from the right anterior iliac crest through a separate incision and this aspirate was mixed with the allograft bone chips. A Depuy Lorman cage of size of the 18 x 45 x 12 mm with 15 degrees lordosis was packed with corticocancellous allograft bone chips mixed with bone marrow aspirate. This was inserted into the L2-3 disc space. The retractors were then repositioned to expose the L1-2 disc and the procedure was repeated with complete discectomy and endplate preparation. Smaller disc distractors were also used to bluntly perform a contralateral annulotomy at both the levels. Cage size was 18 x 15 x 12 mm at L1-2. AP and lateral C-arm pictures were taken to confirm good position of the cage. Some bone chips were also packed around the cages. Screw with washer was placed into the lower L1 and L2 body with a washer partially covering the cage at L1-2 and L2-3 respectively. Hemostasis was confirmed. The retractor blades were removed. Closure was done in layers with a continuous strand of # 1 Vicryl in all muscle layers. 2-0 Vicryl was used for subcutaneous tissue and 4-0 for Monocryl for the skin. Steri-Strips were applied and 4 x 4 gauze and Tegaderm were applied. Lead Installer Sindi Whitaker PA-C. My physician environmental emergencies assistant was a vital part of this case. They were important in appropriate retraction during the case, and protection of soft tissues during the procedure. Their intimate knowledge of the case and my steps aided in safe and expedient completion of the procedure as well as appropriate position of the patient during the surgery. They were also vital in assisting with closure under my direct supervision. Surgical Findings: See operative note Complications Complications: No
[2024-08-25] MEDS: Ketorolac 15 MG/ML Vial IV ×2 (17:10→22:56)
--- NOTE | 2024-08-25 17:23 | OP.PCM_ITS ---
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 Pole Peeling Machine Operator: Sindi Whitaker Tasks completed by assistant professor: Closing, Implanting device, Hemostasis: Electrocautery and Retracting Type of Anesthesia: General RN Documented Start/Stop Times: Operation Date: 08/25/24 07:30 Case Time Into Pre-Op 08/25/24 05:41 Anesthesia Start 08/25/24 07:46 Into Room 08/25/24 07:46 Out of Pre-Op 08/25/24 07:46 Procedure Start 08/25/24 08:19 Procedure End 08/25/24 16:42 Anesthesia End 08/25/24 16:48 Out of Room 08/25/24 16:48 Procedure Start Time: 08:19 Procedure Stop Time: 16:42 Select all DRAINS/GRAFTS/IMPLANTS that apply: Graft Graft details: Allograft cancellous bone chips and Implanted device Implanted device details: DePuy iExploreer prime pedicle screw instrumentation Estimated Blood Loss: 200 cc Specimen collected: No Description of surgery: Preoperative diagnosis: L5-S1 spondylolisthesis, L1-3 disc degeneration, stenosis with neurogenic claudication degenerative lumbar scoliosis Postoperative diagnosis: Same Name of procedures: L1-3 posterior percutaneous pedicle screw instrumented fusion, L5-S1 posterior percutaneous pedicle screw instrumented fusion, separate constructs, prone: ? L1-2 posterior spinal fusion 05649 ? L1-3 posterior pedicle screw instrumentation 13512 ? L2-3 posterior fusion 03508/51 . L5-S1 posterior spinal fusion 86606 . L5-S1 posterior pedicle screw instrumentation 05658 ? Allograft cancellous chips [id number] Attending Surgeon: Dr. Chris Angulo Estimated blood loss: 200 mL (total for entire case) Anesthesia: General Complications: None Description of procedure: After the anterior procedures were complete, the patient was then turned supine. The patient was then transferred to Deon table in prone position. Back was prepped and draped in usual fashion. C-arm AP view was then taken. C-arm was positioned in a way that L1 was centralized and superior endplate of was parallel to the beam. Spinous process was centered between the pedicles. Midline was marked with skin marker and lateral borders of the pedicles were also marked. Skin marker was also utilized to vandana transversely across the middle of the pedicles at L1. 2 transverse paramedian incisions of 1 inch were placed. The fascia was incised vertically. Finger dissection was utilized to palpate the transverse process and facet joint. Viper Prime screws with towers were inserted and docked onto the transverse processes. This was then slowly moved medially to reach the superior articular process of L1. This was then confirmed on C-arm and then a mallet was utilized to drive the trocar into the pedicle going up to the medial wall of the pedicle on AP view. This was performed both sides. C-arm lateral view confirmed that the tip of the trocar was in the vertebral body, and the screw was advanced into the pedicle and vertebral body. This was repeated similarly at L2 and L3 bilaterally. Screw sizes were 7 x 50 mm at L1, L2, and L3 on both sides. 80 mm precontoured titanium 5.5 mm lordotic alexis on the right and 90 mm on the left were then passed through the screw extensions and reduced down to the screws with the help of [employer] instrumentation system on both sides. AP and lateral view of the C-arm showed good positioning of the screws and cages. Final tightening with the torque screwdriver was then completed. Hume was utilized to roughen the facet joint at L1-2 and L2-3 on the right side. Cancellous allograft bone chips mixed with bone marrow aspirate were then placed over this decorticated area. C-arm was then positioned in a way that L5 was centralized and superior endplate of was parallel to the beam. Spinous process was centered between the pedicles. Midline was marked with skin marker and lateral borders of the pedicles were also marked. Skin marker was also utilized to vandana transversely across the middle of the pedicles at L5. 2 longitudinal paramedian incisions of 1 inch were placed. The fascia was incised vertically. Finger dissection was utilized to palpate the transverse process and facet joint. Viper Prime screws with towers were inserted and docked onto the transverse processes. This was then slowly moved medially to reach the superior articular process of L5. This was then confirmed on C-arm and then a mallet was utilized to drive the trocar into the pedicle going up to the medial wall of the pedicle on AP view. This was performed both sides. C-arm lateral view confirmed that the tip of the trocar was in the vertebral body, and the screw was advanced into the pedicle and vertebral body. This was repeated similarly at S1 bilaterally. Screw sizes were 7 x 50 mm at L5, and 7 x 45 mm at S1 on both sides. 35 mm precontoured titanium 5.5 mm lordotic alexis on the right and 40 mm on the left were then passed through the screw extensions and reduced down to the screws with the help of [employer] instrumentation system on both sides. AP and lateral view of the C-arm showed good positioning of the screws and cages. Final tightening with the torque screwdriver was then completed. Hume was utilized to roughen the facet joint at L5-S1 on the right side. Cancellous allograft bone chips mixed with bone marrow aspirate were then placed over this decorticated area. Hemostasis was achieved. Closure was done in layers with 0 Vicryls for the fascia, 2-0 Vicryls for the subcutaneous tissue, and Monocryl for the skin. Dermabond was applied. Dressings were applied covered with Tegaderm. The patient was then turned supine onto a hospital bed. The patient was extubated and taken to PACU in stable condition. The patient tolerated the procedure well and no complications occurred. Depuy [place] cage & Viper Prime minimally invasive pedicle screw instrumentation system was utilized in this case. No dural tear was identified intraoperatively. I was present for the entirety of the case and performed the surgery. Cut Out Machine Operator Sindi Whitaker PA-C. My physician medical research assistant was a vital part of this case. They were important in appropriate retraction during the case, and protection of soft tissues during the procedure. Their intimate knowledge of the case and my steps aided in safe and expedient completion of the procedure as well as appropriate position of the patient during the surgery. They were also vital in assisting with closure under my direct supervision. Surgical Findings: See operative note Complications Complications: No
[2024-08-25 17:33] LABS: Bedside Glucose 193 mg/dL (74-106)
[2024-08-25 18:37] LABS: Bedside Glucose 197 mg/dL (74-106)
[2024-08-25 19:01] LABS: Reflex Lactate? Y
[2024-08-25 20:05] LABS: Lactic Acid 3.3 mmol/L (0.0-2.0)
--- NOTE | 2024-08-25 20:15 | PCM.PN.HOSP ---
Reason for Visit Reason for Visit: Diagnoses Encounter for other preprocedural examination (08/25/24) Subjective Subjective Pt is a 59y/o male w/ a hx of CAD s/p CABG 2014, HTN who presented to [facility] 08/25/24 for a lumbar fusion. Hospitalist consulted for postop medical management. Patient evaluated bedside, he reports he is feeling uncomfortable because he can't reach the button to move his bed up and down. He has no other new or focal complaints Objective Data Objective Data Vital Signs: Vital Signs Temp Pulse Resp BP Pulse Ox O2 Del Method O2 Flow Rate 97.1 F L 96 14 113/84 H 98 Nasal Cannula 5 08/25/24 18:53 08/25/24 18:53 08/25/24 18:53 08/25/24 18:53 08/25/24 18:53 08/25/24 18:53 08/25/24 18:53 Oxygen Flow Rate (L/min) 5 Oxygen Delivery Method Nasal Cannula Weight: 94.8 kg Body Mass Index (BMI) 30.8 Intake & Output: Intake and Output for Last 24 Hours 08/23/24 08/24/24 08/25/24 23:59 23:59 23:59 Intake Total 3220 / 3220 Output Total 600 / 600 Balance 2620 / 2620 Lab / Micro Data 08/25/24 14:10 08/25/24 14:10 Labs: Laboratory Results - last 24 hr 08/25/24 06:13: POC Glucose 247 H 08/25/24 09:01: WBC 7.8, RBC 4.06 L, Hgb 13.3, Hct 37.9 L, MCV 93.3, MCH 32.8 H, MCHC 35.1, RDW Std Deviation 41.7, RDW Coeff of Kandi 12.1, Plt Count 146 L, MPV 10.7, Immature Gran % (Auto) 0.500, Neut % (Auto) 62.4, Lymph % (Auto) 20.0, [place] % (Auto) 12.8 H, Eos % (Auto) 3.1, Baso % (Auto) 1.2 H, Absolute Neuts (auto) 4.9, Absolute Lymphs (auto) 1.56, Nucleated RBC % 0, Sodium 139, Potassium 4.1, Chloride 105, Carbon Dioxide 22.9, Anion Gap 11, BUN 18, Creatinine 1.16, Estim Creat Clear Calc 75.99, Est GFR (MDRD) Non-Af 72, BUN/Creatinine Ratio 15.7, Glucose 130 H, Calcium 9.2 08/25/24 14:10: WBC 13.0 H, RBC 3.86 L, Hgb 12.6 L, Hct 36.1 L, MCV 93.5, MCH 32.6 H, MCHC 34.9, RDW Std Deviation 41.3, RDW Coeff of Kandi 12.0, Plt Count 145 L, MPV 11.5, Sodium 139, Potassium 4.1, Chloride 105, Carbon Dioxide 21.8, Anion Gap 12, BUN 16, Creatinine 1.08, Estim Creat Clear Calc 81.62, Est GFR (MDRD) Non-Af 78, BUN/Creatinine Ratio 14.5, Glucose 162 H, Calcium 9.0 08/25/24 15:01: Lactic Acid 2.7 H* 08/25/24 17:05: POC Glucose 193 H 08/25/24 18:19: POC Glucose 197 H 08/25/24 19:15: Lactic Acid 3.3 H* Micro: Microbiology 08/12/24 08:42 Swab (Method) Nasal Screen MRSA/MSSA - Final ABG Data ABG results: ABG 08/25/24 08/25/24 09:16 14:30 Specimen Type ART ART Sample Site Art Line Art Line pH 7.37 7.40 Bicarbonate Actual 25.7 23.6 Total CO2 27 25 Base Excess 0 -1 O2 Saturation 100 H 100 H O2 % 60.0 60.0 ABG pCO2 44.5 38.4 ABG pO2 185 H 229 H Respiration Rate 10 12 O2 Delivery Device Adult Vent Adult Vent Vent Mode SIMV SIMV Tidal Volume 550.0 550.0 POC PEEP 5 5 Physical Exam Narrative General: Alert, oriented, no apparent distress HEENT: Atraumatic, normocephalic Eyes: extraocular movements grossly intact Neck: Supple Respiratory: normal respiratory effort, right side clear to auscultation, left side seems slightly diminished at the base Cardiovascular: no edema appreciated GI: nondistended Extremities: Moving all extremities Neuro: No overt focal neurological deficits Psych: Irritable Assessment & Plan Assessment/Plan (1) Other intervertebral disc degeneration, lumbar region with discogenic back pain and lower extremity pain: PLAN: Plan #Hypertension - Blood pressure 113/84, will decrease carvedilol to allow room for pain control - Given patient is going to be on an NSAID we will hold losartan to try to avoid kidney injury #Hx of CAD -w/ previous CABG - Resume home aspirin and Plavix when cleared to do so by primary team # Elevated lactic acid - Unclear why this was obtained, original 2.7, repeat that automatically reflexed when patient got up to floor 3.3 - Will give very gentle IV fluids, patient not hypotensive or tachycardic - Will add daily weights, monitor I's and O's - Temporarily holding patient's Lasix #Hyperglycemia - Patient was hyperglycemic today in the OR, do not see history of diabetes listed on chart - Blood glucose checks and sliding scale insulin - A1c in the a.m. #Lumbar DDD w/ stenosis -Pre-Operative Diagnosis: L5-S1 spondylolisthesis, L1-3 disc degeneration with stenosis, degenerative scoliosis -Surgery/Procedure Performed: L1-3 posterior spinal instrumented fusion, L5-S1 posterior spinal instrumented fusion with Dr. Angulo 08/25/2024 - Postoperative/pain management per primary - PT/OT #DVT ppx: Timing discretion of primary Brooke Keenan MD Time spent in the patient's overall evaluation, decision-making process, review of diagnostic data, adjustment of management, discussion with other providers, nursing and ancillary staff involved in patient's care documentation,32 Minutes Charges/Coding Visit Charges Office Visits / Consults: 82942 OV L4 Est 30min
[2024-08-25] MEDS: Methocarbamol 500 MG Tablet 1000 MG PO ×2 (20:35→22:55)
[2024-08-25] MEDS: Atorvastatin Calcium 40 MG Tablet PO (20:35)
[2024-08-25] MEDS: oxyCODONE 5 MG Tablet PO (20:35)
[2024-08-25] MEDS: Senna/Docusate Sodium 1 Tablet 2 TABLET PO (20:35)
[2024-08-25 22:28] LABS: Lactic Acid 3.4 mmol/L (0.0-2.0)
[2024-08-25] MEDS: 0.9% Normal Saline (1000mL) 1,000 ML 50 ML IV (22:55)
[2024-08-25 23:24] LABS: Bedside Glucose 205 mg/dL (74-106)
[2024-08-26 01:36] VITALS: BP 134/89; PULSE 86; RESP 18; TEMP 36.4; O2SAT 99
[2024-08-26] MEDS: oxyCODONE 5 MG Tablet PO ×3 (01:37→12:00)
[2024-08-26 01:43] LABS: Reflex Lactate? Y
[2024-08-26 02:14] LABS: Hematocrit 38.2 % (40-54); Hemoglobin 12.9 g/dL (13.0-16.5); Mean Corp Hgb Conc 33.8 g/dL (32-36); Mean Corpuscular Hgb 32.7 pg (27.0-32.0); Mean Corpuscular Volume 96.7 fL (80-94); Mean Platelet Vol. 11.1 fl (6.2-12.0); Platelet Count 174 K/mm3 (150-450); RBC Distribution Width CV 12.2 % (11.6-14.6); RBC Distribution Width SD 43.4 fl (35.1-43.9); Red Blood Count 3.95 M/mm3 (4.6-6.2); White Blood Count 21.9 K/mm3 (4.4-11.0)
[2024-08-26 02:47] LABS: Anion Gap 16 (5-15); BUN 19 mg/dL (4-19); BUN/Creat Ratio 11.3 RATIO (10-20); Calcium,Total 9.1 mg/dL (7.6-11.0); Carbon Dioxide 20.9 mmol/L (21.0-32.0); Chloride 99 mmol/L (98-108); Creatinine, Serum 1.72 mg/dL (0.70-1.20); EST Glomerular Filtration Rate 45 (>60); Estimated Creatinine Clearance 51.25 ml/min (50-250); Glucose 187 mg/dL (70-99); Potassium 4.4 mmol/L (3.3-5.1); Sodium Level 136 mmol/L (133-145)
[2024-08-26 02:49] LABS: Lactic Acid 5.4 mmol/L (0.0-2.0)
[2024-08-26] MEDS: Morphine 4 MG/ML Syringe IV (03:46)
[2024-08-26 04:21] LABS: Hemoglobin A1c 5.9 % (<=5.6)
--- NOTE | 2024-08-26 04:50 | RAD_ITS ---
PROCEDURE: LUMBAR SPINE 2 OR 3 VIEWS 08/26/2024 REASON FOR EXAM: S/P LUMBAR FUSION TECHNIQUE: 2 view(s) of the lumbar spine FINDINGS: Status post intervertebral disc spacers L1-2 and L2-3 with right lateral anchor screws and bilateral posterior fusion appears intact and anatomic. L3-4 disc space narrowing Intervertebral cage device with anterior fixation L5-S1 and bilateral posterior fusion appears intact and anatomic. No fracture or malalignment. Heavy appearing aortoiliac atherosclerotic calcification. RAD/Lumbar Spine 2 or 3 Views IMPRESSION: Postsurgical changes as above appear intact and anatomic. Reading Location: [id number]
[2024-08-26 05:15] VITALS: BMI 31.0
[2024-08-26 05:53] VITALS: BP 130/92; PULSE 89; RESP 18; TEMP 36.6; O2SAT 99
[2024-08-26] MEDS: Acetaminophen 500 MG Tablet 1000 MG PO (05:55)
[2024-08-26] MEDS: Cefazolin 2 GM in 0.9% Normal Saline (100mL Bag) 100 ML IV (05:56)
[2024-08-26] MEDS: Ketorolac 15 MG/ML Vial IV (05:56)
[2024-08-26 07:54] LABS: Lactic Acid 3.5 mmol/L (0.0-2.0)
[2024-08-26 08:49] VITALS: BP 127/91; PULSE 105; RESP 18; TEMP 36.5; O2SAT 100
[2024-08-26] MEDS: Meloxicam 15 MG Tablet PO (08:51)
[2024-08-26] MEDS: Methocarbamol 500 MG Tablet 1000 MG PO (08:55)
[2024-08-26] MEDS: Carvedilol 3.125 MG TABLET PO (08:55)
[2024-08-26] MEDS: Ensure Surgery 237 ML LIQUID PO (08:55)
[2024-08-26] MEDS: Senna/Docusate Sodium 1 Tablet 2 TABLET PO (08:56)
[2024-08-26 09:02] LABS: Bedside Glucose 157 mg/dL (74-106)
[2024-08-26 11:02] LABS: Reflex Lactate? Y
--- NOTE | 2024-08-26 11:15 | PCM.PN.HOSP ---
Reason for Visit Reason for Visit: Diagnoses Other intervertebral disc degeneration, lumbar region with discogenic back pain and lower extremity pain (08/25/24) Encounter for other preprocedural examination (08/25/24) Objective Data Objective Data Vital Signs: Vital Signs Temp Pulse Resp BP Pulse Ox O2 Del Method O2 Flow Rate 97.7 F L 105 H 18 127/91 H 100 Room Air 2 08/26/24 08:49 08/26/24 08:49 08/26/24 08:49 08/26/24 08:49 08/26/24 08:49 08/26/24 08:49 08/26/24 01:36 Oxygen Flow Rate (L/min) 2 Oxygen Delivery Method Room Air Weight: 209 lb 12.258 oz Body Mass Index (BMI) 31.0 Intake & Output: Intake and Output for Last 24 Hours 08/24/24 08/25/24 08/26/24 23:59 23:59 23:59 Intake Total 3330 / 4230 1260 / 1260 Output Total 600 / 600 Balance 2730 / 3630 1260 / 1260 Lab / Micro Data 08/26/24 02:05 08/26/24 02:05 Labs: Laboratory Results - last 24 hr 08/25/24 14:10: WBC 13.0 H, RBC 3.86 L, Hgb 12.6 L, Hct 36.1 L, MCV 93.5, MCH 32.6 H, MCHC 34.9, RDW Std Deviation 41.3, RDW Coeff of Kandi 12.0, Plt Count 145 L, MPV 11.5, Sodium 139, Potassium 4.1, Chloride 105, Carbon Dioxide 21.8, Anion Gap 12, BUN 16, Creatinine 1.08, Estim Creat Clear Calc 81.62, Est GFR (MDRD) Non-Af 78, BUN/Creatinine Ratio 14.5, Glucose 162 H, Calcium 9.0 08/25/24 15:01: Lactic Acid 2.7 H* 08/25/24 17:05: POC Glucose 193 H 08/25/24 18:19: POC Glucose 197 H 08/25/24 19:15: Lactic Acid 3.3 H* 08/25/24 21:40: Lactic Acid 3.4 H* 08/25/24 22:47: POC Glucose 205 H 08/26/24 02:05: WBC 21.9 H, RBC 3.95 L, Hgb 12.9 L, Hct 38.2 L, MCV 96.7 H, MCH 32.7 H, MCHC 33.8, RDW Std Deviation 43.4, RDW Coeff of Kandi 12.2, Plt Count 174, MPV 11.1, Sodium 136, Potassium 4.4, Chloride 99, Carbon Dioxide 20.9 L, Anion Gap 16 H, BUN 19, Creatinine 1.72 H, Estim Creat Clear Calc 51.25, Est GFR (MDRD) Non-Af 45 L, BUN/Creatinine Ratio 11.3, Glucose 187 H, Hemoglobin A1c 5.9 H, Lactic Acid 5.4 H*, Calcium 9.1 08/26/24 07:00: Lactic Acid 3.5 H* 08/26/24 07:34: POC Glucose 157 H Micro: Microbiology 08/12/24 08:42 Swab (Method) Nasal Screen MRSA/MSSA - Final ABG Data ABG results: ABG 08/25/24 14:30 Specimen Type ART Sample Site Art Line pH 7.40 Bicarbonate Actual 23.6 Total CO2 25 Base Excess -1 O2 Saturation 100 H O2 % 60.0 ABG pCO2 38.4 ABG pO2 229 H Respiration Rate 12 O2 Delivery Device Adult Vent Vent Mode SIMV Tidal Volume 550.0 POC PEEP 5 Radiography Diagnostic Testing: Radiology Impression Lumbar Spine X-Ray 08/25/24 07:46 IMPRESSION: Fluoroscopy as detailed above Reading Location: [facility] Lumbar Spine X-Ray 08/26/24 04:50 IMPRESSION: Postsurgical changes as above appear intact and anatomic. Reading Location: [facility] Physical Exam Narrative Seen and examined Patient had lumbar surgery from transabdominal and spinal approach. Physical exam General: Alert, Oriented x3, Cooperative HEENT: Atraumatic, PERRLA, EOMI, Normocephalic. Oral: No Gingival or Mucosal Lesions/ Ulcerations Neck: Supple, No JVD, Negative Carotid Bruits Chest wall/Lungs: Air entry diminished in bilateral lung bases. No crepitation/rhonchi Cardiovascular: Regular rate and rhythm, Normal S1,S2, systolic murmur, valve click. Status post CABG and AVR Abdomen: Abdominal dressing is dry. Bowel Sounds Present, Soft, Non Tender, Non-Distended : No dysuria. No renal angle tenderness. No suprapubic tenderness. Extremities: No edema, Capillary Refill Less than 3 Seconds Skin: No rashes, No breakdown Musculoskeletal: No Tenderness to Palpation of Joints or Extremities Neurological: Cranial nerves II-XII grossly intact, DTR 2+/4. No acute focal neurological deficit. Spine: Paraspinal dressing is intact. No acute tenderness or swelling or hematoma. Psych/Mental Status: Normal Affect, Appropriate. General: Alert, oriented, no apparent distress HEENT: Atraumatic, normocephalic Eyes: extraocular movements grossly intact Neck: Supple Respiratory: normal respiratory effort, right side clear to auscultation, left side seems slightly diminished at the base Cardiovascular: no edema appreciated GI: nondistended Extremities: Moving all extremities Neuro: No overt focal neurological deficits Psych: Irritable Assessment & Plan Assessment/Plan (1) Other intervertebral disc degeneration, lumbar region with discogenic back pain and lower extremity pain: PLAN: Plan #Hypertension - Blood pressure 113/84, will decrease carvedilol to allow room for pain control - Given patient is going to be on an NSAID we will hold losartan to try to avoid kidney injury 08/26: Patient blood pressure is controlled. Hold losartan while taking NSAIDs #Hx of CAD -w/ previous CABG - Resume home aspirin and Plavix when cleared to do so by primary team # Elevated lactic acid - Unclear why this was obtained, original 2.7, repeat that automatically reflexed when patient got up to floor 3.3 - No need for repeat lactic acid. Does not relate to sepsis clinically, order of lactic acid was not indicated # prediabetes - Patient was hyperglycemic today in the OR, do not see history of diabetes listed on chart - Blood glucose checks and sliding scale insulin - A1c 5.9%. Prediabetes #Lumbar DDD w/ stenosis -Pre-Operative Diagnosis: L5-S1 spondylolisthesis, L1-3 disc degeneration with stenosis, degenerative scoliosis -Surgery/Procedure Performed: L1-3 posterior spinal instrumented fusion, L5-S1 posterior spinal instrumented fusion with Dr. Angulo 08/25/2024 - Postoperative/pain management per primary - PT/OT #DVT ppx: Timing discretion of primary Charges/Coding Visit Charges Inpatient E&M: 91745 Subs Hosp L2
--- NOTE | 2024-08-26 11:35 | CASEMGMT ---
RN?CM?CLEARANCE COORDINATOR?CM?to room to meet with patient for initial transition planning/care coordination?assessment.?RN?CM?introduced self and role at [facility].? Pt voices understanding and consents to?assessment?at this time.? Pt sitting up in room in no distress at this time.? Janneth, @ bedside. Pt is A/O at this time and answers all questions appropriately.?? Care providers, pharmacy, and demographics verified/updated at this time. Strata: 1 PCP: Dr Carbajal Specialists: Dr Angulo-ortho, CONTACT WORKER Ashlie Duran-cardiology/[facility] Preferred Pharmacy: [facility] pharmacy @ [facility] Insurance: [place] [employer] Prescription Benefit: yes? LNOK: Janneth Living Arrangements: Lives w/ in one-story home w/basement w/2 steps to enter. Independent w/ADL's, manages his own medications, and does some cooking. does most home mgnt tasks. Transportation:?Pt and both drive. DME: States has the following DME:?built-in shower seat in basement, cane, walker ?Pt states no need for further DME at this time.? HHC/SNF: No hx of either. Pt plans to continue to do home walking program @ [facility] Pt wishes to return home and states has no concerns with going home at time of discharge.? ?CM?to follow for any discharge planning/needs.? Pt and voice no further concerns/needs at this time.? Advised them to ask for?CM?if any further questions/concerns/needs arise.? They voice understanding. PLAN:??Home Jaron IZAGUIRREN?RN?CM
[2024-08-26] MEDS: Insulin Lispro 100 UNIT/ML INSULN.PEN SC (11:53)
[2024-08-26] MEDS: Calcium Carbonate 500 MG Tablet PO (12:10)
[2024-08-26 12:20] LABS: Bedside Glucose 161 mg/dL (74-106)
--- NOTE | 2024-08-26 13:53 | OP.PCM_ITS ---
Operative Report (Standard) Operative Information Date of Procedure: 08/25/24 Pre-Operative Diagnosis: L5-S1 spondylolisthesis, stenosis with neurogenic claudication, L1-3 disc degeneration with stenosis, degenerative scoliosis Post-Operative Diagnosis: Same Surgery/Procedure Performed: L5-S1 anterior lumbar lumbar fusion moto mix operator: Yes Glass Forming Engineer: Sindi Whitaker Tasks completed by first coat operator: Opening, Closing, Opening & closing and Retracting Type of Anesthesia: General RN Documented Start/Stop Times: Operation Date: 08/25/24 07:30 Case Time Into Pre-Op 08/25/24 05:41 Anesthesia Start 08/25/24 07:46 Into Room 08/25/24 07:46 Out of Pre-Op 08/25/24 07:46 Procedure Start 08/25/24 08:19 Procedure End 08/25/24 16:42 Anesthesia End 08/25/24 16:48 Out of Room 08/25/24 16:48 Into Recovery 08/25/24 16:51 Out of Recovery 08/25/24 18:28 Procedure Start Time: 08:20 Procedure Stop Time: 16:45 Select all DRAINS/GRAFTS/IMPLANTS that apply: Graft Graft details: Allograft cancellous bone chips, autologous bone marrow aspirate and and Implanted device Implanted device details: 4WEB lumbar interbody cage anterior spine TRUSS system, Aegis plate instrumentation Estimated Blood Loss: 200 Specimen collected: No Description of surgery: Name of procedures L5-S1 anterior lumbar interbody fusion (ALIF),Supine: ? L5-S1 anterolateral spinal fusion 14454 ? L5-S1 insertion of cage 02948 . L5-S1 anterior instrumentation 61706 ? Bone graft aspirate left iliac crest separate incision ? Allograft cancellous chips Co-Surgeons: Dr. Angulo, Dr. Brooke HPI: Patient is a 59-year-old male evaluated by Dr. Angulo and found to be appropriate for anterior and oblique lumbar interbody fusions. Vascular surgery assistance is requested for exposure of the L5-S1 disc space from anterior approach as well as secondary procedure oblique approach which will be dictated separately. Description of procedure: Upon obtaining informed consent and verification correct patient procedure site patient taken the operating was placed under general anesthesia. He was then positioned prepped and draped in you sterile fashion timeout was performed. Transverse incision was then made 2 fingerbreadth superior to the pubic bone and Bovie electrocautery used to dissect down through subcutaneous tissue to the level the fascia. Hand-held retractors then put in position and the fascia was incised vertically at the midline. The cleft between the rectus abdominis muscles was then dissected bluntly and the right rectus abdominis muscle retracted laterally gaining entry into the preperitoneal space. Blunt dissection was then used to dissect the abdominal contents off of the posterior aspect of the anterior abdominal wall as well as from the lateral and posterior aspect of the pelvis retracting the contents superiorly and medially. Once we palpated and visualized the midline structures including the aortic and iliac bifurcation the Synn frame self- retaining retractor was brought into position. Combination of blunt and Bovie dissection was then used to dissect free the medial aspect of the left common iliac artery and vein allowing them to be retracted laterally exposing the L5-S1 disc. The middle sacral vein was then identified and cauterized with bipolar Bovie. Further blunt and sharp dissection was used to dissect the connective tissue from the anterior aspect of the vertebral space and self-retaining retractors were readjusted optimizing the view of the disc. Once we had satisfactory visualization Dr. Angulo performed his discectomy and insertion of the cage which he will dictate in further detail. Once the cage and plate or position the self-retaining retractors were then repositioned into a more shallow plane in the iliac vessels visualized. The common, internal, external iliac arteries had satisfactory appearance with palpable pulses throughout. There was a small area of punctate bleeding from the mid common iliac vein from what appeared to be a branch insertion site. This location actually was directly posterior to the common iliac artery and simply letting the artery return to the cabazon position controlled any bleeding. Surgicel topical hemostatic agent was then placed over the hole in the vein between the iliac vein and the iliac artery with satisfactory hemostasis observed. The remaining structures of the retroperitoneum were satisfactory in appearance so the self- retaining retractors were withdrawn and the abdominal contents allowed to return to the cabazon position. The fascia was then closed with 1 Vicryl in running fashion and the superficial wound space irrigated and then closed with 2-0 Vicryl, 4 Monocryl. Dry sterile dressings were then applied the patient was then repositioned for the oblique approach. Surgical Findings: see above Complications Complications: No
--- NOTE | 2024-08-26 14:05 | OP.PCM_ITS ---
Operative Report (Standard) Operative Information Date of Procedure: 08/25/24 Pre-Operative Diagnosis: L5-S1 spondylolisthesis, L1-3 disc degeneration with stenosis, degenerative scoliosis Post-Operative Diagnosis: Same Surgery/Procedure Performed: L1-3 oblique lumbar body fusion clinical business manager: Yes Blueprint Machine Operator: Sindi Whitaker Tasks completed by certified surgical first assistant: Opening, Closing, Opening & closing and Retracting Type of Anesthesia: General RN Documented Start/Stop Times: Operation Date: 08/25/24 07:30 Case Time Into Pre-Op 08/25/24 05:41 Anesthesia Start 08/25/24 07:46 Into Room 08/25/24 07:46 Out of Pre-Op 08/25/24 07:46 Procedure Start 08/25/24 08:19 Procedure End 08/25/24 16:42 Anesthesia End 08/25/24 16:48 Out of Room 08/25/24 16:48 Into Recovery 08/25/24 16:51 Out of Recovery 08/25/24 18:28 Procedure Start Time: 08:20 Procedure Stop Time: 16:45 Select all DRAINS/GRAFTS/IMPLANTS that apply: Graft Graft details: Allograft cancellous bone chips, autologous bone marrow aspirate and Implanted device Implanted device details: DePuy cougar lateral lumbar interbody cage?peek Estimated Blood Loss: 200 Specimen collected: No Description of surgery: Name of procedures L1-3 oblique lumbar interbody fusion (OLIF), minimally invasive right sided approach, lateral decubitus: ? L1-2 anterolateral spinal fusion 15069 ? L2-3 anterolateral fusion 76004/51 ? L1-2 insertion of cage 15406 ? L2-3 insertion of cage 19557/51 ? Bone graft aspirate left iliac crest separate incision ? Allograft cancellous chips Attending Surgeon: Dr. Chris Angulo Co-surgeon: Dr. Fletcher Brooke HPI: Patient is a 59-year-old male with multilevel lumbosacral degenerative disc disease who evaluated by Dr. Angulo and found to be appropriate for anterior and oblique lumbar interbody fusions. The L5-S1 anterior approach had been completed and dictated separately and the patient is now positioned in lateral position for oblique approach of L1-L3. Description of procedure: Upon today informed consent and verification correct patient procedure site patient was taken to the operating room where he had been positioned prepped and draped initially for anterior approach. After this was completed he was now repositioned for oblique approach and the patient reprepped and draped. Oblique incision was then made on the lateral aspect of the right abdominal wall and Bovie electrocautery was dissect down to the subcutaneous tissue to level the fascia. Fascia was then incised and the muscle layers of the abdominal wall were split along their fibers with self-retaining and hand- held retractor moved deeper into the wound with each layer. Once the preperitoneal space was encountered blunt dissection was used to dissect down to the lateral posterior abdominal wall mobilizing the abdominal contents toward the midline. Once the psoas muscle was identified the Syn frame self-retaining retractor was put into position. The anterior and medial aspect of the psoas muscle was then dissected with Bovie and retracted laterally exposing the lateral aspect of the vertebral column. First the L2-L3 disc space was identified and combination of blunt and Bovie dissection used to dissect free until adequate visualization was obtained. This point Dr. Angulo performed the discectomy which she will dictate in further detail. Gelfoam was then placed within the disc space and attention turned to the L1-L2 disc space. The more superior aspect of the psoas muscle was mobilized from the lateral aspect of the vertebral column and the disc base visualized. Further Bovie and blunt dissection was used to mobilize this os and self-retaining retractors repositioned. Once adequate visualization of the disc space was obtained Dr. Angulo performed his discectomy and implantation which he will dictate in further detail. After this was completed we then returned to the L2-L3 disc space with the implant was then placed dictated in detail by Dr. Angulo. The contents of the retroperitoneum and preperitoneal space were then inspected and found to be satisfactory in appearance with adequate hemostasis. The self-retaining retractors were then removed and the contents allowed to return to their [place] position. The abdominal musculature was then closed with 1 Vicryl in a running fashion with each layer repaired individually. Once this was completed the superficial space was irrigated and the incision closed with 2-0 Vicryl, 4 Monocryl and dry sterile dressing applied. The patient was then repositioned for posterior approach which Dr. Angulo will dictate separately. Surgical Findings: See above Complications Complications: No
[2024-08-26 15:20] VITALS: BP 138/92; PULSE 100; RESP 18; TEMP 36.7; O2SAT 100
--- NOTE | 2024-08-27 09:51 | PCM.PN.ORT ---
Subjective Subjective Date of visit was August 26, 2024. Patient postop day 1 L1-3 and L5-S1 fusion. Patient is doing very well postoperatively with his pain well-managed. The patient has been up and walking to go to the bathroom and has walked the hallways. Patient has been cleared for home discharge by therapy. The patient has passed gas and has tolerated a solid meal. Seen with Dr. Angulo. Objective Data Objective Data Vital Signs: Vital Signs Temp Pulse Resp BP Pulse Ox O2 Del Method O2 Flow Rate 98.0 F 100 18 138/92 H 100 Room Air 2 08/26/24 15:20 08/26/24 15:20 08/26/24 15:20 08/26/24 15:20 08/26/24 15:20 08/26/24 15:20 08/26/24 01:36 Oxygen Flow Rate (L/min) 2 Oxygen Delivery Method Room Air Weight: 209 lb 12.258 oz Body Mass Index (BMI) 31.0 Intake & Output: Intake and Output for Last 24 Hours 08/25/24 08/26/24 08/27/24 23:59 23:59 23:59 Intake Total 3330 / 4230 1760 / 1760 Output Total 600 / 600 Balance 2730 / 3630 1760 / 1760 Lab / Micro Data 08/26/24 02:05 08/26/24 02:05 Labs: Laboratory Results - last 24 hr 08/26/24 11:51: POC Glucose 161 H Micro: Microbiology 08/12/24 08:42 Swab (Method) Nasal Screen MRSA/MSSA - Final Physical Exam Narrative Neurological examination of the lower extremity shows 5X5 power. Normal sensation across all dermatomes. Physical examination of the back, side, and belly shows surgical dressings CDI. Const alert, oriented x3 and no apparent distress Assessment & Plan Assessment/Plan (1) Status post lumbar spinal fusion: PLAN: Plan Postop day 1 L1-3 and L5-S1 fusion. Patient is ready for home discharge. Obtained and reviewed x-rays which show hardware and bone graft in good position. PT/OT cleared. Reviewed restrictions of no bending, lifting, twisting. Reviewed and educated the patient on the use of the incentive spirometer. Patient has passed gas and has tolerated a solid meal. Home-going meds include oxycodone, acetaminophen, methocarbamol, senna. Holding meloxicam due to the patient taking Plavix. Patient will resume Plavix on August 28. He will follow-up in the clinic in 2 weeks. Patient is in agreement.
== END 2024-08-26 15:04 | disposition home or self-care (01) | DRG 426 ==
PROVIDERS: Anesthesiology; Internal Medicine; Student in an Organized Health Care Education/Training Program; Admitting Provider Orthopaedic Surgery Orthopaedic Surgery of the Spine; PCP Preventive Medicine Occupational Medicine; Referring Provider Orthopaedic Surgery Orthopaedic Surgery of the Spine; Visit Provider Orthopaedic Surgery Orthopaedic Surgery of the Spine
PROC: 0SG10A0 Fusion of 2 or more Lumbar Vertebral Joints with Interbody Fusion Device, Anterior Approach, Anterior Column, Open Approach (ICD-10-PCS; principal; 2024-08-25 07:00)
DX: M48.062 Spinal stenosis, lumbar region with neurogenic claudication (principal); S35.515A Injury of left iliac vein, initial encounter; I97.51 Accidental puncture and laceration of a circulatory system organ or structure during a circulatory system procedure; I10 Essential (primary) hypertension; E78.5 Hyperlipidemia, unspecified; M43.19 Spondylolisthesis, multiple sites in spine; M48.07 Spinal stenosis, lumbosacral region; M41.87 Other forms of scoliosis, lumbosacral region; K21.9 Gastro-esophageal reflux disease without esophagitis; F17.210 Nicotine dependence, cigarettes, uncomplicated; I25.10 Atherosclerotic heart disease of native coronary artery without angina pectoris; M51.360 Other intervertebral disc degeneration, lumbar region with discogenic back pain only; R73.9 Hyperglycemia, unspecified; H91.90 Unspecified hearing loss, unspecified ear; Z99.89 Dependence on other enabling machines and devices; Z79.899 Other long term (current) drug therapy; Z95.1 Presence of aortocoronary bypass graft
CPT/HCPCS: 36415; 72100; 72110; 76000; 80048; 82803; 82962; 83036; 83605; 83735; 85025; 85027; 86703; 86706; 86708; 86803; 86850; 86900; 86901; 87081; 93005; 94668; 97161; 97166; A4648; C1713; J2405; J3475